=== PATIENT | female | born 1950 | race Caucasian/White ===

== ENCOUNTER → 2021-08-18 | Outpatient (CLI) | payer MEDICARE ==
[~2021-08-18] MED LIST: AMLO-186 PO; ATOR20TA58 PO; HYDR12.58 PO; LISI-130 PO; METF500S5 PO; METO200T2 PO
[2021-08-18 14:16] LABS: BASO # 0.1 x10^3/uL (0.0-0.2); BASO % 0 % (0-3); EOS # 1.1 x10^3/uL (0.0-0.7); EOS % 7 % (0-3); HEMATOCRIT 39.4 % (36.0-47.0); HEMOGLOBIN 12.9 g/dL (12.0-15.5); LYMPH # 3.7 x10^3/uL (1.0-4.8); LYMPH % 24 % (24-48); MEAN CORPUSCULAR HEMOGLOBIN 29 pg (25-35); MEAN CORPUSCULAR HGB CONC 33 g/dL (31-37); MEAN CORPUSCULAR VOLUME 90 fL (79-100); MONO # 0.8 x10^3/uL (0.0-1.1); MONO % 5 % (0-9); NEUT # 9.6 x10^3/uL (1.8-7.7); NEUT % 63 % (31-73); PLATELET COUNT 305 x10^3/uL (140-400); RED CELL DISTRIBUTION WIDTH 14.4 % (11.5-14.5); WHITE BLOOD COUNT 15.3 x10^3/uL (4.0-11.0)
[2021-08-18 15:00] LABS: % BANDS 2 % (0-9); % EOS 11 % (0-5); % LYMPHS 19 % (24-48); % MONOS 3 % (0-10); % SEGS 65 % (35-66); PLT ESTIMATE ADEQUATE (ADEQUATE)
== END ==
LOC: ONCLAB 13:52
PROVIDERS: ATTEND Internal Medicine Hematology & Oncology
DX: D72.9 Disorder of white blood cells, unspecified (principal)
CPT/HCPCS: 36415; 82607; 82746; 85007; 85025; 85651; 88184; 88185; 88374

== ENCOUNTER → 2021-11-09 | Outpatient (CLI) | payer MEDICARE ==
[~2021-11-09] MED LIST changes: +METF500T16 PO; +NAPR220T70 PO
[2021-11-09 08:56] LABS: BASO # 0.2 x10^3/uL (0.0-0.2); BASO % 2 % (0-3); EOS # 0.7 x10^3/uL (0.0-0.7); EOS % 6 % (0-3); HEMATOCRIT 39.1 % (36.0-47.0); HEMOGLOBIN 12.9 g/dL (12.0-15.5); LYMPH # 2.8 x10^3/uL (1.0-4.8); LYMPH % 24 % (24-48); MEAN CORPUSCULAR HEMOGLOBIN 29 pg (25-35); MEAN CORPUSCULAR HGB CONC 33 g/dL (31-37); MEAN CORPUSCULAR VOLUME 89 fL (79-100); MONO # 0.7 x10^3/uL (0.0-1.1); MONO % 6 % (0-9); NEUT # 7.3 x10^3/uL (1.8-7.7); NEUT % 62 % (31-73); PLATELET COUNT 263 x10^3/uL (140-400); RED BLOOD COUNT 4.41 x10^6/uL (3.50-5.40); WHITE BLOOD COUNT 11.6 x10^3/uL (4.0-11.0)
[2021-11-09 09:04] LABS: PROTHROMBIN TIME PATIENT 11.5 SEC (11.7-14.0)
[2021-11-09 09:12] LABS: ALBUMIN 3.9 g/dL (3.4-5.0); CALCIUM 9.3 mg/dL (8.5-10.1); CREATININE 0.9 mg/dL (0.6-1.0); GFR 61.7; POTASSIUM 3.6 mmol/L (3.5-5.1)
--- NOTE | 2021-11-09 13:02 | RAD ---
EXAM: Chest, 2 views. HISTORY: Preoperative evaluation. COMPARISON: None. FINDINGS: 2 views of chest are obtained. There is no infiltrate, pleural effusion or pneumothorax. Th e heart is normal in size. There are peripherally calcified implant breast prostheses. There is biapi iron pleural thickening likely due to scarring. IMPRESSION: No acute pulmonary finding. Electronically signed by: Caroline Morgan MD (11/09/2021 12:59 PM) [id number]
[2021-11-10 01:12] LABS: HEMOGLOBIN A1C 6.5 % (4.8-5.6)
== END ==
LOC: SURGPAT 13:06
PROVIDERS: ATTEND Orthopaedic Surgery
DX: Z01.818 Encounter for other preprocedural examination (principal); M16.11 Unilateral primary osteoarthritis, right hip
CPT/HCPCS: 36415; 71046; 80048; 82040; 82306; 83036; 85025; 85610; 85651; 85730; 87641

== ENCOUNTER 2021-11-30 08:51 | Observation (INO) | payer MEDICARE ==
[2021-11-10 11:52] VITALS: BP 185/84
[2021-11-10 12:21] VITALS: BP 185/84
[2021-11-30] VITALS (8 sets, daily range): BP systolic 102–163; BP diastolic 53–77
[~2021-11-30] VITALS: Ht 165.1 cm; Wt 96.3 kg
[~2021-11-30 08:51] MED LIST changes: +ACETAMINOPHEN 500 MG TABLET PO PRN; +CLINDAMYCIN 900MG PREMIX 50 ML IV PRN; +DEXAMETHASONE SOD PHOS 4 MG/ML VIAL ONE; +GABAPENTIN 300 MG CAPSULE. PO PRN; +GLYCOPYRROLATE 1 MG/5 ML VIAL. ONE; +LIDOCAINE 2% PF 5 ML VIAL. ONE; +MELOXICAM 7.5 MG TABLET PO PRN; +MIDAZOLAM HCL/PF 2 MG/2 ML VIAL. ONE; +NEOSTIGMINE METHYLSULFATE 5 MG/5 ML SYRINGE. ONE; +ONDANSETRON PF 4 MG/2 ML VIAL. ONE; +PROPOFOL 10 MG/ML (20ML) VIAL. IV ONE; +ROCURONIUM 50 MG/5 ML VIAL. ONE; +SEVOFLURANE 31 TO 60 MINUTES. IH ONE; +TRANEXAMIC ACID 1,000 MG in IV NS 50ML -- 1ST BAG INJ ONE; +TRANEXAMIC ACID 1,000 MG in IV NS 50ML -- 2ND BAG INJ ONE; +TV=62ml MORPHINE 5 MG, KETOROLAC 30 MG, ROPIV, EPI INT ART ONE; +fentaNYL PF VIAL 100 MCG/2 ML VIAL ONE
[2021-11-30] MEDS: IV RINGERS,LACTATED 1000ML 1,000 ML IV SCH ×2 (10:01→23:20)
[2021-11-30] MEDS: INSULIN LISPRO 100 UNIT/ML 3ML VIAL for OP,RR ONLY. SQ PRN ×3 (10:03→14:03)
[2021-11-30] MEDS ORDERED: TRANEXAMIC ACID in NS IVPB 50 ML ONE ×2 (10:30→11:24)
[2021-11-30] MEDS ORDERED: DEXTROSE 50% 25 GM / 50ML DISP.SYRIN. IV PRN (11:15)
[2021-11-30] MEDS ORDERED: METOCLOPRAMIDE HCL 10 MG/2 ML VIAL. IVP PRN (11:15)
[2021-11-30] MEDS ORDERED: diphenhydrAMINE 50 MG/ML VIAL IVP PRN (11:15)
[2021-11-30] MEDS ORDERED: ZOLPIDEM 5 MG TABLET. PO PRN (11:15)
[2021-11-30] MEDS ORDERED: MORPHINE SULFATE 2 MG/ML INJ. IVP PRN ×2 (11:15→13:45)
[2021-11-30] MEDS ORDERED: CALCIUM CARBONATE 500 MG TAB.CHEW PO PRN (11:15)
[2021-11-30] MEDS ORDERED: PROCHLORPERAZINE 5 MG TABLET. PO PRN (11:15)
[2021-11-30] MEDS ORDERED: fentaNYL PF VIAL 100 MCG/2 ML VIAL IVP PRN ×2 (11:15→13:45)
[2021-11-30] MEDS ORDERED: IV DEXTROSE 5% 250 ML BAG. IV PRN (11:15)
[2021-11-30] MEDS ORDERED: 0.9 % SODIUM CHLORIDE 10 ML DISP.SYRIN. IV PRN (11:15)
[2021-11-30] MEDS: ONDANSETRON ODT 4 MG TAB.RAPDIS. PO SCH ×2 (12:00→17:19)
[2021-11-30] MEDS: ONDANSETRON PF 4 MG/2 ML VIAL. IVP SCH ×2 (12:00→17:14)
[2021-11-30] MEDS ORDERED: ePHEDrine PF IN SALINE 50 MG/10 ML SYRINGE. IV ONE (12:16)
--- NOTE | 2021-11-30 12:30 | PDOC4 ---
OPERATIVE NOTE Date: Date: Nov 30, 2021 Pre-Op Diagnosis: Severe degenerative joint disease right hip Post-Op Diagnosis: Same Procedure Performed: Right total hip arthroplasty Surgeon: Puma Anesthesia Type: General Blood Loss: 200 cc Specimans Obtained: Femoral head right hip Findings: See dictation Complications: None KEVIN MARR Jr. DO Nov 30, 2021 12:30
--- NOTE | 2021-11-30 12:38 | PREOP HP ---
DATE OF SERVICE: 11/30/2021 HISTORY OF PRESENT ILLNESS: She is a 71-year-old female here today with complaints of right hip pain. She has continued to have right hip pain for a significant amount of time, has been a patient with Dr. Cohen who has tried a significant amount of nonsurgical interventions. However, at this point, she has failed physical therapy, anti-inflammatories, pain medications, etc. She would like to therefore undergo the right total hip arthroplasty secondary to problems with ADLs. MEDICAL HISTORY: Hypertension, tachycardia, type 2 diabetes and hyperlipidemia. SURGICAL HISTORY: Neck surgery at age 11 and hospitalizations secondary to that surgery. FAMILY HISTORY: Not documented. SOCIAL HISTORY: The patient has never been a tobacco user or alcohol use at this point. MEDICATIONS: Toprol as well as hydrochlorothiazide, lisinopril, atorvastatin, amlodipine, metformin. ALLERGIES: PENICILLIN. PHYSICAL EXAMINATION: She is 61 inches tall. She is 212 pounds. She has 0 degrees of internal rotation, but only about 20 degrees of external rotation, 35 degrees of abduction, all in a significant amount of pain. She does not have a flexion contracture at this point, however, does have pain throughout the arc of motion, significant antalgic gait secondary to pain. Distal neurovascular status is fully intact with no significant or severe atrophy of musculature. IMPRESSION: Severe right hip degenerative joint disease. PLAN: She will see Anesthesia here before too long and after they discuss the anesthesia at length, we will proceed with a right total hip arthroplasty at her request. She is already aware of the risks, complications as well as benefits and expectations of surgery, postoperative protocol and followup. DAVID/SHIV/CHIDI DR: Vaishnavi TID: [id number]
[2021-11-30] MEDS: MULTIVITAMIN with MINERAL TABLET. PO SCH (13:00)
[2021-11-30] MEDS ORDERED: INSULIN LISPRO 100 UNIT/ML 3ML VIAL for OP,RR ONLY. SQ ONE ×2 (13:15)
--- NOTE | 2021-11-30 13:30 | RAD ---
XR PELVIS 1-2V History: Postop hip arthroplasty FINDINGS/ IMPRESSION: Postsurgical features from right total hip arthroplasty with well-seated acetabular and femoral compo nents. No fracture or dislocation. Expected subcutaneous air and fluid consistent with recent instrum entation. Mild degenerative changes present in the left hip. Electronically signed by: Tuan Schumacher MD (11/30/2021 1:27 PM) [id number]
[2021-11-30] MEDS ORDERED: fentaNYL PF VIAL 100 MCG/2 ML VIAL ONE (13:42)
[2021-11-30] MEDS: fentaNYL PF VIAL 100 MCG/2 ML VIAL IVP PRN ×2 (13:44→13:57)
[2021-11-30] MEDS ORDERED: IV RINGERS,LACTATED 1000ML 1,000 ML IV SCH (13:45)
[2021-11-30] MEDS ORDERED: PROCHLORPERAZINE 10 MG/2 ML VIAL. IVP PRN (13:45)
[2021-11-30] MEDS ORDERED: HYDROmorphone 2 MG/ML INJ. IVP PRN (13:45)
[2021-11-30] MEDS ORDERED: ASPI325T11 PO (14:23)
[2021-11-30] MEDS ORDERED: CLINDAMYCIN 900MG PREMIX 50 ML IV SCH (14:30)
--- NOTE | 2021-11-30 15:32 | OP ---
DATE OF SURGERY: 11/30/2021 PREOPERATIVE DIAGNOSIS: Severe degenerative joint disease, right hip. POSTOPERATIVE DIAGNOSIS: Severe degenerative joint disease, right hip. PROCEDURE: Right total hip arthroplasty. SURGEON: Carlo Bartholomew Jr., MACHINERY MOVER: Prem Younger. ANESTHESIA: General. COMPLICATIONS: None. ESTIMATED BLOOD LOSS: 200 mL. COMPONENTS: A 52 acetabular shell with an elevated liner. Femoral size 2 with a -5 mm 36 mm head. DESCRIPTION OF PROCEDURE: The patient was taken to the operative suite, given a general anesthetic, placed in a lateral position on the table with the affected hip upright. After padding of soft tissue surfaces as well as placement in this position, the right hip was then prepped and draped in a sterile fashion. The standard anterolateral approach to the hip was undertaken with incision through skin and subcutaneous tissues down through the iliotibial band, which was split in line with the skin incision. Superficial bleeding was coagulated using Bovie knife. This was retracted anteriorly and posteriorly. The inferior 1/3-1/2 of the gluteus medius was removed from its insertion into the greater trochanter and retracted anteriorly. The capsule was then identified and opened up in an H fashion and the hip was forcibly dislocated using a bone hook. This was measured one fingerbreadth above the lesser trochanter and using the appropriate guide, the cut was made for the femoral neck. This removed the head and a portion of the neck. The head was then measured and noted to be 47 mm. Therefore, reaming began at size 43 at 2 mm increments up to 49 and then there was 1 mm increments up to 52. This was noted to have a good acetabular fill. Good bleeding bone was noted at that time. Good bone was noted along the periphery as well as centrally. Therefore, this was thoroughly irrigated and suctioned dry and then the component was fixed and after this was impacted into the acetabulum was significantly tight. Two screws, one of 30 and one of 25 mm of length were then placed through the acetabular shell. These had excellent purchase into bone. There was very good bone quality noted at that point. The polyethylene was then impacted into the acetabular component noted to be secure and stable. Attention was then directed to the femur while the leg was placed in the side bag. Appropriate retractors were noted. The box closing machine operator opened up the femur, followed by the IM guide, followed by broaching at 0. However, only due to her narrowing of the femoral canal went to size 2. This was noted to be the most appropriate size at this point. Therefore, after this was irrigated, the actual size 2 was placed and this was trialed again, -5 was noted to be the most appropriate neck length. Therefore, this was forcibly dislocated and then the head was placed and impacted onto the femoral component, both noted to be very secure. This was then subsequently relocated, taken through extremes in range of motion with excellent stability, good pistoning was noted at that point as well. The capsule was then reapproximated in an interrupted fashion using #2 Ethibond. The gluteus medius was reattached to its original insertion site as well. This was noted to be stable throughout the arc of motion. Therefore, the iliotibial band was originally held with 1 suture and then reinforced along the entire length with the Stratafix. After this was done and noted to be very stable, superficial tissues and the skin was reapproximated. Local was placed in the region. Sterile dressing was applied. The patient was then taken from the operative bed to the postoperative bed, taken to the PACU in stable condition. JULISSA DR: Vaishnavi TID: [id number]
[2021-11-30] MEDS: CLINDAMYCIN 900MG PREMIX 50 ML IV SCH (17:13)
[2021-11-30] MEDS: IV NORMAL SALINE 1000ML BAG 1,000 ML IV SCH (17:13)
[2021-11-30] MEDS: FERROUS SULFATE 325 MG TABLET. PO SCH (17:14)
[2021-11-30] MEDS: SENNOSIDES/DOCUSATE 8.6/50MG TABLET. PO SCH (17:14)
[2021-11-30] MEDS: ASPIRIN ENTERIC COATED 325 MG TABLET.DR. PO SCH (21:36)
[2021-11-30] MEDS: oxyCODONE IR 5 MG TABLET PO PRN (21:39)
[2021-12-01] MEDS: CLINDAMYCIN 900MG PREMIX 50 ML IV SCH ×2 (00:18→05:10)
[2021-12-01 03:08] VITALS: BP 119/66
[2021-12-01] MEDS: ONDANSETRON PF 4 MG/2 ML VIAL. IVP SCH ×2 (04:53)
[2021-12-01] MEDS: ONDANSETRON ODT 4 MG TAB.RAPDIS. PO SCH ×2 (04:54)
[2021-12-01] MEDS: GABAPENTIN 100 MG CAPSULE. PO SCH ×2 (05:14→19:28)
[2021-12-01] MEDS ORDERED: MAGNESIUM HYDROXIDE 2,400 MG/30 ML ORAL.SUSP. PO PRN (06:00)
[2021-12-01 06:43] VITALS: BP 119/61
[2021-12-01] MEDS: ASPIRIN 325 MG TABLET PO SCH (07:55)
[2021-12-01] MEDS: ATORVASTATIN CALCIUM 20 MG TABLET PO SCH (09:04)
[2021-12-01] MEDS: FERROUS SULFATE 325 MG TABLET. PO SCH ×2 (09:04→17:59)
[2021-12-01] MEDS: ASPIRIN ENTERIC COATED 325 MG TABLET.DR. PO SCH ×2 (09:04→19:58)
[2021-12-01] MEDS: metFORMIN 500 MG TABLET PO SCH ×2 (09:04→17:58)
[2021-12-01] MEDS: MULTIVITAMIN with MINERAL TABLET. PO SCH (09:05)
[2021-12-01] MEDS: MELOXICAM 7.5 MG TABLET PO SCH (09:05)
[2021-12-01] MEDS: ACETAMINOPHEN 500 MG TABLET PO SCH ×3 (09:06→21:00)
[2021-12-01] MEDS: SENNOSIDES/DOCUSATE 8.6/50MG TABLET. PO SCH (09:06)
[2021-12-01 11:05] VITALS: BP 140/60
[2021-12-01] MEDS: IV NORMAL SALINE 1000ML BAG 1,000 ML IV SCH (11:15)
--- NOTE | 2021-12-01 11:47 | PDOC1 ---
History and Physical Date of Service: DOS: DATE: 12/01/21 TIME: 11:47 Allergies: Allergies: Coded Allergies: Penicillins (Verified Allergy, Intermediate, 08/12/21) nickel (Unverified Allergy, Intermediate, 11/30/21) Current Medications: Current Medications Current Medications Meloxicam (Mobic) 15 mg 1X PREOP PRN PO PRIOR TO PROCEDURE Last administered on 11/30/21at 09:56; Start 11/30/21 at 06:00; Stop 11/30/21 at 18:00; Status DC Gabapentin (Neurontin) 300 mg 1X PREOP PRN PO PRIOR TO PROCEDURE Last administered on 11/30/21at 09:56; Start 11/30/21 at 06:00; Stop 11/30/21 at 18:00; Status DC Acetaminophen (Tylenol) 1,000 mg 1X PREOP PRN PO PRIOR TO PROCEDURE Last administered on 11/30/21at 09:56; Start 11/30/21 at 06:00; Stop 11/30/21 at 18:00; Status DC Clindamycin Phosphate 50 ml @ 100 mls/hr 1X PREOP PRN IV PRIOR TO PROCEDURE; Start 11/30/21 at 06:00; Stop 11/30/21 at 18:00; Status DC Tranexamic Acid 50 ml @ 50 mls/hr 1X PERIOP ONCE INJ ; Start 11/30/21 at 06:00; Stop 11/30/21 at 06:59; Status DC Tranexamic Acid 50 ml @ 50 mls/hr 1X PERIOP ONCE INJ ; Start 11/30/21 at 08:00; Stop 11/30/21 at 08:59; Status DC Morphine Sulfate 5 mg/Ketorolac Tromethamine 30 mg/Ropivacaine 60 ml/Epinephrine HCl 0.5 mg/ Miscellaneous 63 ml @ 63 mls/hr 1X PERIOP ONCE INT ART Last administered on 11/30/21at 11:48; Start 11/30/21 at 06:00; Stop 11/30/21 at 06:59; Status DC Propofol (Diprivan) 200 mg STK-MED ONCE IV ; Start 11/30/21 at 08:31; Stop 11/30/21 at 08:32; Status DC Dexamethasone Sodium Phosphate (Decadron) 4 mg STK-MED ONCE .ROUTE ; Start 11/30/21 at 08:31; Stop 11/30/21 at 08:32; Status DC Lidocaine HCl (Lidocaine Pf 2% Vial) 5 ml STK-MED ONCE .ROUTE ; Start 11/30/21 at 08:31; Stop 11/30/21 at 08:32; Status DC Ondansetron HCl (Zofran) 4 mg STK-MED ONCE .ROUTE ; Start 11/30/21 at 08:31; Stop 11/30/21 at 08:32; Status DC Sevoflurane (Ultane) 30 ml STK-MED ONCE IH ; Start 11/30/21 at 08:31; Stop 11/30/21 at 08:32; Status DC Rocuronium Gackle (Zemuron) 50 mg STK-MED ONCE .ROUTE ; Start 11/30/21 at 08:32; Stop 11/30/21 at 08:32; Status DC Fentanyl Citrate (Fentanyl 2ml Vial) 100 mcg STK-MED ONCE .ROUTE ; Start at 08:32; Stop 11/30/21 at 08:32; Status DC Neostigmine Gackle (Neostigmine Methylsulfate) 5 mg STK-MED ONCE .ROUTE ; Star t 11/30/21 at 08:32; Stop 11/30/21 at 08:32; Status DC Midazolam HCl (Versed) 2 mg STK-MED ONCE .ROUTE ; Start 11/30/21 at 08:32; Stop 11/30/21 at 08:32; Status DC Glycopyrrolate (Robinul) 1 mg STK-MED ONCE .ROUTE ; Start 11/30/21 at 08:32; Stop 11/30/21 at 08:33; Status DC Insulin Human Lispro (HumaLOG VIAL for OP,RR ONLY) 0-10 units PRN Q1HR PRN SQ PER PROTOCOL Last administered on 11/30/21at 14:03; Start 11/30/21 at 10:00; Stop 12/01/21 at 09:59; Status DC Ringer's Solution 1,000 ml @ 75 mls/hr [id number] IV Last administered on 11/30/21at 10:01; Start 11/30/21 at 10:00 Tranexamic Acid 50 ml @ As Directed STK-MED ONCE .ROUTE Last administered on 11/30/21at 11:48; Start 11/30/21 at 10:30; Stop 11/30/21 at 10:30; Status DC Morphine Sulfate (Morphine Sulfate) 2 mg PRN Q1HR PRN IVP PAIN-SEE COMMENTS; Start 11/30/21 at 11:15 Fentanyl Citrate (Fentanyl 2ml Vial) 25 mcg PRN Q1HR PRN IVP PAIN, 2nd CHOICE; Start 11/30/21 at 11:15 Diphenhydramine HCl (Benadryl) 25 mg PRN Q6HRS PRN IVP ITCHING; Start 11/30/21 at 11:15 Multivitamins (Thera M Plus) 1 tab DAILY PO Last administered on 12/01/21at 09:05; Start 11/30/21 at 13:00 Senna/Docusate Sodium (Senna Plus) 1 tab DAILY PO Last administered on 12/01/21at 09:06; Start 11/30/21 at 13:00 Ferrous Sulfate (Feosol) 325 mg BIDWMEALS PO Last administered on 12/01/21at 09:04; Start 11/30/21 at 17:00 Sodium Chloride 1,000 ml @ 40 mls/hr Q24H IV Last administered on 11/30/21at 17:13; Start 11/30/21 at 11:15 Clindamycin Phosphate 50 ml @ 100 mls/hr Q6H IV ; Start 11/30/21 at 14:30; Stop 12/01/21 at 02:59; Status Cancel Prochlorperazine Maleate (Compazine) 10 mg PRN Q4HRS PRN PO Nausea/vomiting, 2nd choice; Start 11/30/21 at 11:15 Metoclopramide HCl (Reglan Vial) 10 mg PRN Q4HRS PRN IVP NAUSEA/VOMITING, 3rd CHOICE; Start 11/30/21 at 11:15 Magnesium Hydroxide (Milk Of Magnesia) 2,400 mg 1X PRN PRN PO CONSTIPATION; Start 12/01/21 at 06:00; Stop 12/02/21 at 05:59 Bisacodyl (Dulcolax Supp) 10 mg 1X PRN PRN VT CONSTIPATION; Start 12/01/21 at 16:00; Stop 12/02/21 at 15:59 Zolpidem Tartrate (Ambien) 5 mg PRN QHS PRN PO INSOMNIA, MAY REPEAT IN 1HR; Start 11/30/21 at 11:15 Calcium Carbonate/ Glycine (Tums) 500 mg PRN QID PRN PO INDIGESTION; Start 11/30/21 at 11:15 Sodium Chloride (Normal Saline Flush) 10 ml QSHIFT PRN IV AFTER MEDS AND BLOOD DRAWS; Start 11/30/21 at 11:15 Acetaminophen (Tylenol) 1,000 mg Q6H PO Last administered on 12/01/21at 09:06; Start 12/01/21 at 09:00 Meloxicam (Mobic) 15 mg DAILY PO Last administered on 12/01/21at 09:05; Start 12/01/21 at 09:00 Gabapentin (Neurontin) 100 mg Q12H PO Last administered on 12/01/21at 05:14; Start 12/01/21 at 06:00 Ondansetron HCl (Zofran) 4 mg Q6HRS IVP Last administered on 11/30/21at 17:14; Start 11/30/21 at 12:00; Stop 12/01/21 at 06:01; Status DC Ondansetron HCl (Zofran Odt) 4 mg Q6HRS PO ; Start 11/30/21 at 12:00; Stop 12/01/21 at 06:01; Status DC Ondansetron HCl (Zofran) 4 mg PRN Q6HRS PRN IVP Nausea/vomiting, 1st choice; Start 12/01/21 at 12:00 Ondansetron HCl (Zofran Odt) 4 mg PRN Q6HRS PRN PO Nausea/vomiting, 1st choice; Start 12/01/21 at 12:00 Oxycodone HCl (Roxicodone) 5 mg PRN Q4HRS PRN PO Pain score 4-6 Last administered on 11/30/21at 21:39; Start 11/30/21 at 11:15 Dextrose (Dextrose 50%-Water Syringe) 12.5 gm PRN Q15MIN PRN IV SEE COMMENTS; Start 11/30/21 at 11:15 Dextrose (Iv Dextrose 5%) 250 ml PRN Q15MIN PRN IV SEE COMMENTS; Start 11/30/21 at 11:15 Aspirin (Rocael Aspirin) 325 mg DAILYWBKFT PO ; Start 12/01/21 at 08:00 Tranexamic Acid 50 ml @ As Directed STK-MED ONCE .ROUTE ; Start 11/30/21 at 11:24; Stop 11/30/21 at 11:24; Status DC Ephedrine Sulfate (ePHEDrine PF IN SALINE SYRINGE) 50 mg STK-MED ONCE IV ; Start 11/30/21 at 12:16; Stop 11/30/21 at 12:16; Status DC Fentanyl Citrate (Fentanyl 2ml Vial) 25 mcg PRN Q5MIN PRN IVP MILD PAIN 1-3; Start 11/30/21 at 13:45; Stop 12/01/21 at 13:44 Fentanyl Citrate (Fentanyl 2ml Vial) 50 mcg PRN Q5MIN PRN IVP MODERATE PAIN 4-6 Last administered on 11/30/21at 13:57; Start 11/30/21 at 13:45; Stop 12/01/21 at 13:44 Morphine Sulfate (Morphine Sulfate) 1 mg PRN Q10MIN PRN IVP SEVERE PAIN 7-10; Start 11/30/21 at 13:45; Stop 12/01/21 at 13:44 Ringer's Solution 1,000 ml @ 30 mls/hr Q24H IV ; Start 11/30/21 at 13:45; Stop 12/01/21 at 01:44; Status DC Hydromorphone HCl (Dilaudid) 0.5 mg PRN Q10MIN PRN IVP SEVERE PAIN 7-10, 2nd CHOICE; Start 11/30/21 at 13:45; Stop 12/01/21 at 13:44 Prochlorperazine Edisylate (Compazine) 5 mg PACU PRN PRN IVP NAUSEA, MRX1; Start 11/30/21 at 13:45; Stop 12/01/21 at 13:44 Fentanyl Citrate (Fentanyl 2ml Vial) 100 mcg STK-MED ONCE .ROUTE ; Start 11/30/21 at 13:42; Stop 11/30/21 at 13:43; Status DC Aspirin (Ecotrin) 325 mg BID PO Last administered on 12/01/21at 09:04; Start 11/30/21 at 21:00 Clindamycin Phosphate 50 ml @ 100 mls/hr Q6H IV Last administered on 12/01/21at 05:10; Start 11/30/21 at 17:00; Stop 12/01/21 at 05:29; Status DC Atorvastatin Calcium (Lipitor) 20 mg DAILY PO Last administered on 12/01/21at 09:04; Start 12/01/21 at 09:00 Metformin HCl (Glucophage) 500 mg BIDWMEALS PO Last administered on 12/01/21at 09:04; Start 12/01/21 at 08:00 Active Scripts Active Reported Aspirin Ec (Aspirin) 325 Mg Tablet.dr 1 Tab PO BID 30 Days Metformin Hcl 500 Mg Tablet 500 Mg PO BIDWMEALS Aleve (Naproxen Sodium) 220 Mg Tablet 440 Mg PO DAILY Atorvastatin Calcium 20 Mg Tablet 1 Tab PO DAILY Hydrochlorothiazide Tablet (Hydrochlorothiazide) 12.5 Mg Tablet 12.5 Mg PO DAILY Amlodipine Besylate 5 Mg Tablet 5 Mg PO DAILY Toprol Xl (Metoprolol Succinate) 200 Mg Tab.er.24h 1 Tab PO DAILY 30 Days Lisinopril 40 Mg Tablet 1 Tab PO DAILY ROS: Review of Systems Review of System REVIEW OF SYSTEMS: GENERAL: Denies weakness SKIN: No bruising, hair changes or rashes. EYES: No blurred, double or loss of vision. NOSE AND THROAT: No history of nosebleeds, hoarseness or sore throat. HEART: No history of palpitations, chest pain or shortness of breath on exertion. LUNGS: Denies cough, hemoptysis, wheezing or shortness of breath. GASTROINTESTINAL: Denies changes in appetite, nausea, vomiting, diarrhea or constipation. GENITOURINARY: No history of frequency, urgency, hesitancy or nocturia. NEUROLOGIC: Denies history of numbness, tingling, or tremor. PSYCHIATRIC: No history of panic, anxiety or depression. ENDOCRINE: No history of heat or cold intolerance, polyuria or polydipsia. EXTREMITIES: Denies joint pain, pain on walking or stiffness. Physical Exam: Vital Signs: Vital Signs Date Time Temp Pulse Resp B/P (MAP) Pulse Ox O2 Delivery O2 Flow Rate FiO2 12/01/21 11:05 97.9 91 20 140/60 (86) 97 Room Air 97.9 11/30/21 17:01 2.0 Physcial Exam: GEN: No apparent distress. Alert and oriented HEENT: Normal cephalic, atraumatic, external auditory canals are patent EYES: Extraocular muscles are intact, pupil are equally round and reactive to light and accommodation MUSCULOSKELETAL: Well developed , well nourished, good range of motion ENDOCRINE: No thyromegaly was palpated LYMPHATICS: No cervical chain or axillary nodes were noted HEMATOPOIETIC: No bruising NECK: Supple, no JVD, no thyromegaly was noted LUNGS: Clear to auscultation in all lung hendrickson without rhonchi or wheezing HEART: RRR, S!, S2 present. Peripheral pulses intact, no obvious murmurs noted ABDOMEN: Soft, nontender. Positive bowel sounds, no organomegaly, normal bowel sounds EXTREMITIES: Without clubbing, cyanosis, or edema. Pedal pulses intact. Negative Homans sign NEUROLOGIC: Normal speech and tone. A&O x 3, moves all extremities, no obvious focal deficits PSYCHIATRIC: Normal affect, normal mood. Stable SKIN: No ulcerations or rashes, good skin turgor, no jaundice VASCULAR: Good capillary refill, neurovascular bundle appears to be intact Labs: Labs: Laboratory Tests Test 11/30/21 09:30 11/30/21 09:41 11/30/21 13:10 11/30/21 14:00 POC SARS CoV-2 Antigen Negative (NEGATIVE) Glucose (Fingerstick) 169 mg/dL (70-99) 160 mg/dL (70-99) 145 mg/dL (70-99) Test 11/30/21 16:53 11/30/21 21:17 Glucose (Fingerstick) 139 mg/dL (70-99) 230 mg/dL (70-99) Laboratory Tests Test 11/30/21 13:10 11/30/21 14:00 11/30/21 16:53 11/30/21 21:17 Glucose (Fingerstick) 160 mg/dL (70-99) 145 mg/dL (70-99) 139 mg/dL (70-99) 230 mg/dL (70-99) Justifications for Admission Other Justification MORRO RAO MD Dec 01, 2021 11:47
[2021-12-01] MEDS: IV RINGERS,LACTATED 1000ML 1,000 ML IV SCH (11:58)
[2021-12-01] MEDS ORDERED: ONDANSETRON ODT 4 MG TAB.RAPDIS. PO PRN (12:00)
[2021-12-01] MEDS ORDERED: ONDANSETRON PF 4 MG/2 ML VIAL. IVP PRN (12:00)
[2021-12-01] MEDS: oxyCODONE IR 5 MG TABLET PO PRN ×2 (13:37→19:58)
[2021-12-01] MEDS ORDERED: SENN1TAB99 PO (13:54)
[2021-12-01] MEDS ORDERED: OXYC1TAB15 PO (13:54)
--- NOTE | 2021-12-01 13:56 | SNU/HH DC ---
DISCHARGE WITH HOME HEALTH DISCHARGE INFORMATION: Discharge Date: Dec 01, 2021 Condition on Discharge: Stable CODE STATUS: Code Status: Full HOME HEALTH: Face to Face: I certify this patient is under my care and that I, or a nurse practitioner or physician's assistant store director working with me, had a face to face encounter that meets the physician face to face encounter requirements with this patient on []. Medical Complications: S/P Joint Replacement Jail For: Assess Cardiopulm Status, Assess & Educate Safety, Medication Management, Pain Management RN For Eval/Treatment: Yes Physical Therapy For: Evalulation/Treatment Occupational Therapy For: Evaluation/Treatment Pt Meets Homebound Status: Poor coordination w/ amb., Unsteady balance w/ amb,, Extreme weakness w/ amb., Limited distance walking, Unable to negotiate home FOLLOW-UP: Follow up with: PCP within 2 weeks of discharge Follow Up With: Orthopedic surgery as scheduled or as needed CERTIFICATION STATEMENT: Certification Statement: Certification Statement: Based on the above finding, I certify that this patient is confined to the home and needs intermittent mcc care, physical therapy and/or speech therapy, or continues to need occupational therapy.~ This patient is under my care, and I have initiated the establishment of the plan of care.~ This patient will be followed by myself or a community physician who will periodically review the plan of care. Home Meds Active Scripts Sennosides/Docusate Sodium (Senna-Docusate Sodium Tablet) 1 Each Tablet, 1 TAB PO DAILY PRN for CONSTIPATION for 20 Days, #20 TAB 0 Refills Prov:MORRO RAO MD 12/01/21 Oxycodone/Apap 5-325 (PERCOCET 5-325 MG TABLET ) 1 Each Tablet, 1 TAB PO PRN Q6HRS PRN for PAIN for 3 Days, #12 TAB 0 Refills Prov:MORRO RAO MD 12/01/21 Reported Medications Aspirin (ASPIRIN EC) 325 Mg Tablet.dr, 1 TAB PO BID for blood thinner for 30 Days, #60 TAB 0 Refills 11/30/21 Metformin Hcl (METFORMIN HCL) 500 Mg Tablet, 500 MG PO BIDWMEALS for ANTI- DIABETIC, TAB 0 Refills 11/10/21 Atorvastatin Calcium (ATORVASTATIN CALCIUM) 20 Mg Tablet, 1 TAB PO DAILY, #30 TAB 5 Refills 08/12/21 Hydrochlorothiazide (HYDROCHLOROTHIAZIDE TABLET) 12.5 Mg Tablet, 12.5 MG PO DAILY for DIURETIC, TAB 0 Refills 08/12/21 Amlodipine Besylate (AMLODIPINE BESYLATE) 5 Mg Tablet, 5 MG PO DAILY, TAB 08/12/21 Metoprolol Succinate (TOPROL XL) 200 Mg Tab.er.24h, 1 TAB PO DAILY for 30 Days, #30 TAB 0 Refills 08/12/21 Lisinopril (LISINOPRIL) 40 Mg Tablet, 1 TAB PO DAILY, #30 TAB 5 Refills 08/12/21 Discontinued Reported Medications Naproxen Sodium (ALEVE) 220 Mg Tablet, 440 MG PO DAILY for pain control, TAB 11/10/21 MORRO RAO MD Dec 01, 2021 13:56
--- NOTE | 2021-12-01 14:31 | NUR ---
Angelica is feeling better after having Zofran iv. She was having nausea and emesis after lunch. she is able to tolerate water at this time without emesis.
[2021-12-01] MEDS ORDERED: BISACODYL 10 MG SUPP.RECT. PR PRN (16:00)
--- NOTE | 2021-12-01 16:08 | PDOC1 ---
History and Physical Date of Admission Date of Admission DATE: 12/01/21 TIME: 16:05 Identification/Chief Complaint Chief Complaint Right hip osteoarthritis Source Source: Chart review, Patient History of Present Illness History of Present Illness 71-year-old female presents to this institution for right hip osteoplasty for right hip osteoarthritis. Patient went to the OR with Dr. Bartholomew. Patient seen in the postoperative course doing well and pain controlled. Past Medical History Cardiovascular: HTN, Hyperlipidemia Endocrine: Diabetes Family History Family History: Family History Unknown Social History Smoke: No ALCOHOL: none Drugs: None Current Medications Current Medications Current Medications Meloxicam (Mobic) 15 mg 1X PREOP PRN PO PRIOR TO PROCEDURE Last administered on 11/30/21at 09:56; Start 11/30/21 at 06:00; Stop 11/30/21 at 18:00; Status DC Gabapentin (Neurontin) 300 mg 1X PREOP PRN PO PRIOR TO PROCEDURE Last administered on 11/30/21at 09:56; Start 11/30/21 at 06:00; Stop 11/30/21 at 18:00; Status DC Acetaminophen (Tylenol) 1,000 mg 1X PREOP PRN PO PRIOR TO PROCEDURE Last administered on 11/30/21at 09:56; Start 11/30/21 at 06:00; Stop 11/30/21 at 18:00; Status DC Clindamycin Phosphate 50 ml @ 100 mls/hr 1X PREOP PRN IV PRIOR TO PROCEDURE; Start 11/30/21 at 06:00; Stop 11/30/21 at 18:00; Status DC Tranexamic Acid 50 ml @ 50 mls/hr 1X PERIOP ONCE INJ ; Start 11/30/21 at 06:00; Stop 11/30/21 at 06:59; Status DC Tranexamic Acid 50 ml @ 50 mls/hr 1X PERIOP ONCE INJ ; Start 11/30/21 at 08:00; Stop 11/30/21 at 08:59; Status DC Morphine Sulfate 5 mg/Ketorolac Tromethamine 30 mg/Ropivacaine 60 ml/Epinephrine HCl 0.5 mg/ Miscellaneous 63 ml @ 63 mls/hr 1X PERIOP ONCE INT ART Last administered on 11/30/21at 11:48; Start 11/30/21 at 06:00; Stop 11/30/21 at 06:59; Status DC Propofol (Diprivan) 200 mg STK-MED ONCE IV ; Start 11/30/21 at 08:31; Stop 11/30/21 at 08:32; Status DC Dexamethasone Sodium Phosphate (Decadron) 4 mg STK-MED ONCE .ROUTE ; Start 11/30/21 at 08:31; Stop 11/30/21 at 08:32; Status DC Lidocaine HCl (Lidocaine Pf 2% Vial) 5 ml STK-MED ONCE .ROUTE ; Start 11/30/21 at 08:31; Stop 11/30/21 at 08:32; Status DC Ondansetron HCl (Zofran) 4 mg STK-MED ONCE .ROUTE ; Start 11/30/21 at 08:31; Stop 11/30/21 at 08:32; Status DC Sevoflurane (Ultane) 30 ml STK-MED ONCE IH ; Start 11/30/21 at 08:31; Stop 11/30/21 at 08:32; Status DC Rocuronium Bosque (Zemuron) 50 mg STK-MED ONCE .ROUTE ; Start 11/30/21 at 08:32; Stop 11/30/21 at 08:32; Status DC Fentanyl Citrate (Fentanyl 2ml Vial) 100 mcg STK-MED ONCE .ROUTE ; Start 11/30/21 at 08:32; Stop 11/30/21 at 08:32; Status DC Neostigmine Bosque (Neostigmine Methylsulfate) 5 mg STK-MED ONCE .ROUTE ; Start 11/30/21 at 08:32; Stop 11/30/21 at 08:32; Status DC Midazolam HCl (Versed) 2 mg STK-MED ONCE .ROUTE ; Start 11/30/21 at 08:32; Stop 11/30/21 at 08:32; Status DC Glycopyrrolate (Robinul) 1 mg STK-MED ONCE .ROUTE ; Start 11/30/21 at 08:32; Stop 11/30/21 at 08:33; Status DC Insulin Human Lispro (HumaLOG VIAL for OP,RR ONLY) 0-10 units PRN Q1HR PRN SQ PER PROTOCOL Last administered on 11/30/21at 14:03; Start 11/30/21 at 10:00; Stop 12/01/21 at 09:59; Status DC Ringer's Solution 1,000 ml @ 75 mls/hr [id number] IV Last administered on 11/30/21at 10:01; Start 11/30/21 at 10:00 Tranexamic Acid 50 ml @ As Directed STK-MED ONCE .ROUTE Last administered on 11/30/21at 11:48; Start 11/30/21 at 10:30; Stop 11/30/21 at 10:30; Status DC Morphine Sulfate (Morphine Sulfate) 2 mg PRN Q1HR PRN IVP PAIN-SEE COMMENTS; Start 11/30/21 at 11:15 Fentanyl Citrate (Fentanyl 2ml Vial) 25 mcg PRN Q1HR PRN IVP PAIN, 2nd CHOICE; Start 11/30/21 at 11:15 Diphenhydramine HCl (Benadryl) 25 mg PRN Q6HRS PRN IVP ITCHING; Start 11/30/21 at 11:15 Multivitamins (Thera M Plus) 1 tab DAILY PO Last administered on 12/01/21at 09:05; Start 11/30/21 at 13:00 Senna/Docusate Sodium (Senna Plus) 1 tab DAILY PO Last administered on 12/01/21at 09:06; Start 11/30/21 at 13:00 Ferrous Sulfate (Feosol) 325 mg BIDWMEALS PO Last administered on 12/01/21at 09:04; Start 11/30/21 at 17:00 Sodium Chloride 1,000 ml @ 40 mls/hr Q24H IV Last administered on 11/30/21at 17:13; Start 11/30/21 at 11:15 Clindamycin Phosphate 50 ml @ 100 mls/hr Q6H IV ; Start 11/30/21 at 14:30; Stop 12/01/21 at 02:59; Status Cancel Prochlorperazine Maleate (Compazine) 10 mg PRN Q4HRS PRN PO Nausea/vomiting, 2nd choice; Start 11/30/21 at 11:15 Metoclopramide HCl (Reglan Vial) 10 mg PRN Q4HRS PRN IVP NAUSEA/VOMITING, 3rd CHOICE; Start 11/30/21 at 11:15 Magnesium Hydroxide (Milk Of Magnesia) 2,400 mg 1X PRN PRN PO CONSTIPATION; Start 12/01/21 at 06:00; Stop 12/02/21 at 05:59 Bisacodyl (Dulcolax Supp) 10 mg 1X PRN PRN W[place] CONSTIPATION; Start 12/01/21 at 16:00; Stop 12/02/21 at 15:59 Zolpidem Tartrate (Ambien) 5 mg PRN QHS PRN PO INSOMNIA, MAY REPEAT IN 1HR; Start 11/30/21 at 11:15 Calcium Carbonate/ Glycine (Tums) 500 mg PRN QID PRN PO INDIGESTION; Start 11/30/21 at 11:15 Sodium Chloride (Normal Saline Flush) 10 ml QSHIFT PRN IV AFTER MEDS AND BLOOD DRAWS; Start 11/30/21 at 11:15 Acetaminophen (Tylenol) 1,000 mg Q6H PO Last administered on 12/01/21at 09:06; Start 12/01/21 at 09:00 Meloxicam (Mobic) 15 mg DAILY PO Last administered on 12/01/21at 09:05; Start 12/01/21 at 09:00 Gabapentin (Neurontin) 100 mg Q12H PO Last administered on 12/01/21at 05:14; Start 12/01/21 at 06:00 Ondansetron HCl (Zofran) 4 mg Q6HRS IVP Last administered on 11/30/21at 17:14; Start 11/30/21 at 12:00; Stop 12/01/21 at 06:01; Status DC Ondansetron HCl (Zofran Odt) 4 mg Q6HRS PO ; Start 11/30/21 at 12:00; Stop 12/01/21 at 06:01; Status DC Ondansetron HCl (Zofran) 4 mg PRN Q6HRS PRN IVP Nausea/vomiting, 1st choice Last administered on 12/01/21at 12:36; Start 12/01/21 at 12:00 Ondansetron HCl (Zofran Odt) 4 mg PRN Q6HRS PRN PO Nausea/vomiting, 1st choice; Start 12/01/21 at 12:00 Oxycodone HCl (Roxicodone) 5 mg PRN Q4HRS PRN PO Pain score 4-6 Last administered on 12/01/21at 13:37; Start 11/30/21 at 11:15 Dextrose (Dextrose 50%-Water Syringe) 12.5 gm PRN Q15MIN PRN IV SEE COMMENTS; Start 11/30/21 at 11:15 Dextrose (Iv Dextrose 5%) 250 ml PRN Q15MIN PRN IV SEE COMMENTS; Start 11/30/21 at 11:15 Aspirin (Rocael Aspirin) 325 mg DAILYWBKFT PO ; Start 12/01/21 at 08:00 Tranexamic Acid 50 ml @ As Directed STK-MED ONCE .ROUTE ; Start 11/30/21 at 11:24; Stop 11/30/21 at 11:24; Status DC Ephedrine Sulfate (ePHEDrine PF IN SALINE SYRINGE) 50 mg STK-MED ONCE IV ; Start 11/30/21 at 12:16; Stop 11/30/21 at 12:16; Status DC Fentanyl Citrate (Fentanyl 2ml Vial) 25 mcg PRN Q5MIN PRN IVP MILD PAIN 1-3; Start 11/30/21 at 13:45; Stop 12/01/21 at 13:44; Status DC Fentanyl Citrate (Fentanyl 2ml Vial) 50 mcg PRN Q5MIN PRN IVP MODERATE PAIN 4-6 Last administered on 11/30/21at 13:57; Start 11/30/21 at 13:45; Stop 12/01/21 at 13:44; Status DC Morphine Sulfate (Morphine Sulfate) 1 mg PRN Q10MIN PRN IVP SEVERE PAIN 7-10; Start 11/30/21 at 13:45; Stop 12/01/21 at 13:44; Status DC Ringer's Solution 1,000 ml @ 30 mls/hr Q24H IV ; Start 11/30/21 at 13:45; Stop 12/01/21 at 01:44; Status DC Hydromorphone HCl (Dilaudid) 0.5 mg PRN Q10MIN PRN IVP SEVERE PAIN 7-10, 2nd CHOICE; Start 11/30/21 at 13:45; Stop 12/01/21 at 13:44; Status DC Prochlorperazine Edisylate (Compazine) 5 mg PACU PRN PRN IVP NAUSEA, MRX1; Start 11/30/21 at 13:45; Stop 12/01/21 at 13:44; Status DC Fentanyl Citrate (Fentanyl 2ml Vial) 100 mcg STK-MED ONCE .ROUTE ; Start 11/30/21 at 13:42; Stop 11/30/21 at 13:43; Status DC Aspirin (Ecotrin) 325 mg BID PO Last administered on 12/01/21at 09:04; Start 11/30/21 at 21:00 Clindamycin Phosphate 50 ml @ 100 mls/hr Q6H IV Last administered on 12/01/21at 05:10; Start 11/30/21 at 17:00; Stop 12/01/21 at 05:29; Status DC Atorvastatin Calcium (Lipitor) 20 mg DAILY PO Last administered on 12/01/21at 09:04; Start 12/01/21 at 09:00 Metformin HCl (Glucophage) 500 mg BIDWMEALS PO Last administered on 12/01/21at 09:04; Start 12/01/21 at 08:00 Active Scripts Active Senna-Docusate Sodium Tablet (Sennosides/Docusate Sodium) 1 Each Tablet 1 Tab PO DAILY PRN 20 Days Percocet 5-325 Mg Tablet (Oxycodone/Acetaminophen) 1 Each Tablet 1 Tab PO PRN Q6HRS PRN 3 Days Reported Aspirin Ec (Aspirin) 325 Mg Tablet.dr 1 Tab PO BID 30 Days Metformin Hcl 500 Mg Tablet 500 Mg PO BIDWMEALS Atorvastatin Calcium 20 Mg Tablet 1 Tab PO DAILY Hydrochlorothiazide Tablet (Hydrochlorothiazide) 12.5 Mg Tablet 12.5 Mg PO DAILY Amlodipine Besylate 5 Mg Tablet 5 Mg PO DAILY Toprol Xl (Metoprolol Succinate) 200 Mg Tab.er.24h 1 Tab PO DAILY 30 Days Lisinopril 40 Mg Tablet 1 Tab PO DAILY Allergies Allergies: Coded Allergies: Penicillins (Verified Allergy, Intermediate, 08/12/21) nickel (Unverified Allergy, Intermediate, 11/30/21) Physical Exam General: Alert, Oriented X3, Cooperative HEENT: Atraumatic Breasts: Normal Abdomen: Normal bowel sounds Extremities: No clubbing Skin: No rashes Psych/Mental Status: Mental status NL Vitals Vitals Vital Signs Date Time Temp Pulse Resp B/P (MAP) Pulse Ox O2 Delivery O2 Flow Rate FiO2 12/01/21 15:46 Room Air 12/01/21 13:37 20 12/01/21 11:05 97.9 91 140/60 (86) 97 97.9 11/30/21 17:01 2.0 Labs Labs Laboratory Tests Test 11/30/21 09:30 11/30/21 09:41 11/30/21 13:10 11/30/21 14:00 POC SARS CoV-2 Antigen Negative (NEGATIVE) Glucose (Fingerstick) 169 mg/dL (70-99) 160 mg/dL (70-99) 145 mg/dL (70-99) Test 11/30/21 16:53 11/30/21 21:17 Glucose (Fingerstick) 139 mg/dL (70-99) 230 mg/dL (70-99) Laboratory Tests Test 11/30/21 16:53 11/30/21 21:17 Glucose (Fingerstick) 139 mg/dL (70-99) 230 mg/dL (70-99) VTE Prophylaxis Ordered VTE Prophylaxis Devices: No VTE Pharmacological Prophylaxi: No Assessment/Plan Assessment/Plan 71-year-old female status post right hip arthroplasty Patient tolerated procedure well and evaluated by physical therapy. Recommend for home with home health and appropriate follow-up with orthopedic surgery. Patient will be sent home with pain medication and stool softeners. She will need to continue her physical therapy rehab on an outpatient basis. Rest of hospital course was uneventful MORRO RAO MD Dec 01, 2021 16:08
[2021-12-01 23:06] VITALS: BP 112/50
[2021-12-02] MEDS: IV RINGERS,LACTATED 1000ML 1,000 ML IV SCH (02:00)
[2021-12-02 02:19] VITALS: BP 130/76
[2021-12-02] MEDS: ACETAMINOPHEN 500 MG TABLET PO SCH ×3 (03:00→14:38)
[2021-12-02 06:18] VITALS: BP 126/70
[2021-12-02] MEDS: oxyCODONE IR 5 MG TABLET PO PRN ×3 (06:24→14:39)
[2021-12-02] MEDS: GABAPENTIN 100 MG CAPSULE. PO SCH (06:24)
[2021-12-02] MEDS: ASPIRIN 325 MG TABLET PO SCH (07:14)
[2021-12-02 08:24] LABS: HEMATOCRIT 34.3 % (36.0-47.0); HEMOGLOBIN 11.2 g/dL (12.0-15.5)
[2021-12-02] MEDS: ASPIRIN ENTERIC COATED 325 MG TABLET.DR. PO SCH (08:42)
[2021-12-02] MEDS: MULTIVITAMIN with MINERAL TABLET. PO SCH (08:42)
[2021-12-02] MEDS: SENNOSIDES/DOCUSATE 8.6/50MG TABLET. PO SCH (08:43)
[2021-12-02] MEDS: metFORMIN 500 MG TABLET PO SCH (08:43)
[2021-12-02] MEDS: ATORVASTATIN CALCIUM 20 MG TABLET PO SCH (08:43)
[2021-12-02] MEDS: MELOXICAM 7.5 MG TABLET PO SCH (08:43)
[2021-12-02] MEDS: FERROUS SULFATE 325 MG TABLET. PO SCH (08:43)
[2021-12-02] MEDS: IV NORMAL SALINE 1000ML BAG 1,000 ML IV SCH (11:15)
--- NOTE | 2021-12-02 13:08 | PDOC3 ---
Discharge Summary Visit Information Date of Admission: Nov 30, 2021 Date of Discharge: Dec 02, 2021 Admitting Diagnosis: Right hip OA Final Diagnosis Right hip OA Brief Hospital Course Allergies Allergies Coded Allergies Type Severity Reaction Last Updated Verified Penicillins Allergy Intermediate 08/12/21 Yes nickel Allergy Intermediate 11/30/21 No Vital Signs Vital Signs Date Time Temp Pulse Resp B/P (MAP) Pulse Ox O2 Delivery O2 Flow Rate FiO2 12/02/21 11:56 Room Air 12/02/21 06:54 94 12/02/21 06:24 20 12/02/21 06:18 98.1 88 126/70 (88) 98.1 Lab Results Laboratory Tests Test 11/30/21 13:10 11/30/21 14:00 11/30/21 16:53 11/30/21 21:17 Glucose (Fingerstick) 160 mg/dL (70-99) 145 mg/dL (70-99) 139 mg/dL (70-99) 230 mg/dL (70-99) Test 12/01/21 16:51 12/01/21 20:33 12/02/21 07:55 Glucose (Fingerstick) 155 mg/dL (70-99) 153 mg/dL (70-99) Hemoglobin 11.2 g/dL (12.0-15.5) Hematocrit 34.3 % (36.0-47.0) Mean Corpuscular Hemoglobin Concent 33 g/dL (31-37) Laboratory Tests Test 12/01/21 16:51 12/01/21 20:33 12/02/21 07:55 Glucose (Fingerstick) 155 mg/dL (70-99) 153 mg/dL (70-99) Hemoglobin 11.2 g/dL (12.0-15.5) Hematocrit 34.3 % (36.0-47.0) Mean Corpuscular Hemoglobin Concent 33 g/dL (31-37) Brief Hospital Course 71-year-old female w/ PMHx Hypertension, tachycardia, type 2 diabetes and hyperlipidemia presents to this institution for right hip osteoplasty for right hip osteoarthritis. Patient went to the OR with Dr. Bartholomew on 11/30/2021. Patient seen in the postoperative course doing well and pain controlled. Has bilateral lower extremity swelling wearing compressive stockings. Able to ambulate well as a platform walker. Will take aspirin twice daily for thr omboprophylaxis. She wishes for home with home health. Passing flatus had a bowel movement pain is well controlled no shortness of breath or chest pain. Problem list: Right hip OA - s/p TKA. Now has her height aligned better. Will have outpatient follow-up with orthopedic surgery Hypertension Tachycardia Type 2 diabetes Hyperlipidemia Greater than 30 minutes spent on discharge home with home health Discharge Information Condition at Discharge: Improved Follow Up: Weeks Disposition/Orders: D/C to Home w/ HH Scheduled Amlodipine Besylate (Amlodipine Besylate) 5 Mg Tablet, 5 MG PO DAILY, (Reported) Entered as Reported by: NITZA TURNER on 08/12/21926 Last Taken: Unknown Dose on 11/30/21 0530 Last Action: Reviewed on 11/30/21949 by CASSIUS PIZARRO Aspirin (Aspirin Ec) 325 Mg Tablet.dr, 1 TAB PO BID for blood thinner for 30 Days, #60 Ref 0 (Reported) Entered as Reported by: ODALYS MACK on 11/30/213 Last Action: Continued on 11/30/211423 by ODALYS MACK Atorvastatin Calcium (Atorvastatin Calcium) 20 Mg Tablet, 1 TAB PO DAILY, #30 Ref 5 (Reported) Entered as Reported by: NITZA TURNER on 08/12/21926 Last Taken: Unknown Dose on 11/29/21 Last Action: Continued on 11/30/212140 by PEDRITO GUIDRY Hydrochlorothiazide (Hydrochlorothiazide Tablet) 12.5 Mg Tablet, 12.5 MG PO DAILY for DIURETIC, Ref 0 (Reported) Entered as Reported by: NITZA TURNER on 08/12/21926 Last Taken: Unknown Dose on 11/29/21 Last Action: Reviewed on 11/30/21 0950 by CASSIUS PIZARRO Lisinopril (Lisinopril) 40 Mg Tablet, 1 TAB PO DAILY, #30 Ref 5 (Reported) Entered as Reported by: NITZA TURNER on 08/12/21926 Last Taken: Unknown Dose on 11/29/21 Last Action: Reviewed on 11/30/21 0950 by CASSIUS PIZARRO Metformin Hcl (Metformin Hcl) 500 Mg Tablet, 500 MG PO BIDWMEALS for ANTI- DIABETIC, Ref 0 (Reported) Entered as Reported by: ABILIO HUERTA on 11/10/21 1145 Last Taken: Unknown Dose on 11/29/21 Last Action: Continued on 11/30/212140 by PEDRITO GUIDRY Metoprolol Succinate (Toprol Xl) 200 Mg Tab.er.24h, 1 TAB PO DAILY for 30 Days, #30 Ref 0 (Reported) Entered as Reported by: NITZA TURNER on 08/12/21 0927 Last Taken: Unknown Dose on 11/30/21 0530 Last Action: Reviewed on 11/30/21949 by CASSIUS PIZARRO Scheduled PRN Oxycodone/Apap 5-325 (Percocet 5-325 Mg Tablet ) 1 Each Tablet, 1 TAB PO PRN Q6HRS PRN for PAIN for 3 Days, #12 Ref 0 Prescribed by: MORRO RAO MD on 12/01/21 1355 Sennosides/Docusate Sodium (Senna-Docusate Sodium Tablet) 1 Each Tablet, 1 TAB PO DAILY PRN for CONSTIPATION for 20 Days, #20 Ref 0 Prescribed by: MORRO RAO MD on 12/01/21 1354 Discontinued Medications Naproxen Sodium (Aleve) 220 Mg Tablet, 440 MG PO DAILY for pain control, (Reported) Entered as Reported by: ABILIO HUERTA on 11/10/21 1145 Last Taken: Unknown Dose on 11/18/21 Last Action: Reviewed on 11/30/2150 by CASSIUS PIZARRO Justicifation of Admission Dx: Justifications for Admission: Justification of Admission Dx: Yes SOLEDAD LEA MD Dec 02, 2021 13:08
--- NOTE | 2021-12-02 15:18 | NUR ---
Patient left around 1458 with her daughters. No complaints of nausea today. Pain under control with PRN pain medications. Discharge education completed by this nurse, therapy, and the medical doctor prior to dismissal. ELIA dressing CDI and working properly with discharge instructions gone over in detail. Home health set up by medical case worker with [facility]. Patient left with all her belongings and her own walker. IV discontinued without complications. NO concerns noted at discharge.
--- NOTE | 2021-12-03 19:07 | PATHOLOGY ---
[facility] Accession Number: [id number] . 01 Material submitted: . hip - RIGHT HIP BONE/TISSUE. Modifiers: right . 01 Clinical history: . R HIP PAIN R TOTAL HIP . 02 Diagnosis: Bone "right hip", (total arthroplasty): - Severe degenerative arthritis, with complete erosion of articular cartilage and underlying subchondral cyst formation. - Negative for malignancy. (MLK:sebastián; 12/02/2021) MBR 12/03/2021 1853 Local . 02 Electronically signed: . Mallory Murdock MD, Pathologist NPI- [id number] . 01 Gross description: . The specimen is received in formalin, labeled "Angelica Castro, right hip bone/tissue". Received is a femoral head with attached femoral neck measuring 4.8 x 4.5 x 4.7 cm in greatest dimensions. The articular surface is light zapata-pink to dark zapata, smooth to roughened, and with signs of eburnation and possible osteophytic growth. Sectioning reveals a zapata-yellow to dark zapata and hemorrhagic cut surfaces with no grossly distinct nodules or lesions. The specimen is submitted representatively in cassettes A1 to A2, following decalcification. ([facility]; 12/01/2021) [facility] 12/01/2021 1708 Local . 02 Pathologist provided ICD-10: M16.11 . 02 CPT . 091249, [id number] Specimen Comment: A courtesy copy of this report has been sent to [phone], [phone] Specimen Comment: [id number] Specimen Comment: Report sent to / DR CORMIER Specimen Comment: A duplicate report has been generated due to demographic updates. Performed at: [id number] [facility] [address], [place], [place] [id number] MD Dameon Gray MD Phone: [phone] Performed at: [address] [id number] MD Pawan Goodwin MD Phone: [phone]
== END 2021-12-02 15:00 | disposition home health service (06) ==
LOC: SURG 08:51 → INTOOBSV 13:30 → 4 SOUTHEST 13:30
PROVIDERS: ADMIT Orthopaedic Surgery; ATTEND Orthopaedic Surgery
DX: M16.11 Unilateral primary osteoarthritis, right hip (principal); Z20.822 Contact with and (suspected) exposure to COVID-19; I10 Essential (primary) hypertension; E11.9 Type 2 diabetes mellitus without complications; E78.5 Hyperlipidemia, unspecified; R00.0 Tachycardia, unspecified; Z96.659 Presence of unspecified artificial knee joint; Z79.899 Other long term (current) drug therapy; Z98.890 Other specified postprocedural states; Z79.82 Long term (current) use of aspirin
CPT/HCPCS: 27130; 36415; 72170; 82962; 85014; 85018; 86850; 86900; 86901; 88304; 88311; 96365; 96366; 96375; 96376; 97116; 97150; 97162; 97166; 97530; 97535; A4213; A4930; A6550; C1776; G0378; G0379; J0171; J1100; J1815; J1885; J2250; J2270; J2405; J2704; J2710; J2795; J3010; J3490; J7030; A4223